=== PATIENT | male | born 1985 | race Caucasian/White ===

== ENCOUNTER 2023-11-10 21:32 | Emergency (ER) | payer SELFPAY ==
[~2023-11-10] VITALS: Ht 175.3 cm; Wt 77.0 kg
[2023-11-10 21:35] VITALS: BP 103/68; PULSE 74; RESP 16; TEMP 98.6; O2SAT 99
[2023-11-11] MEDS ORDERED: NAPR220C61 MT (01:47)
== END 2023-11-11 02:17 | disposition home or self-care (01) ==
LOC: ER 21:32
DX: S52.302A Unspecified fracture of shaft of left radius, initial encounter for closed fracture (principal); S09.90XA Unspecified injury of head, initial encounter; G89.11 Acute pain due to trauma; E11.9 Type 2 diabetes mellitus without complications; Y08.89XA Assault by other specified means, initial encounter; Y93.89 Activity, other specified; Y92.89 Other specified places as the place of occurrence of the external cause; Y99.8 Other external cause status
CPT/HCPCS: 29125; 70486; 73070; 73560; 73590; 99284